=== PATIENT | female | born 1985 ===

== ENCOUNTER 2016-11-17 12:41 | Emergency (ER) | payer MEDICAID, OTHER | END 2016-11-17 16:35 | disposition home or self-care (01) | LOC: C.ER 12:41 ==

== ENCOUNTER 2017-11-30 11:38 | Emergency (ER) | payer MEDICAID ==
[2017-11-30 11:39] VITALS: BMI 31.8
[2017-11-30 12:40] VITALS: RESP 17
[2017-11-30 13:40] LABS: BASO % 0.4 % (0.0-2.0); EOS % 0.1 % (0.0-4.0); HEMOGLOBIN 12.4 g/dL (11.0-16.0); LYMPH % 16.5 % (20.0-40.0); MEAN CORPUSCULAR HEMOGLOBIN 28.4 pg (27.0-31.0); MEAN CORPUSCULAR HGB CONC 33.3 g/dL (33.0-37.0); MEAN PLATELET VOLUME 9.3 fL (7.2-11.7); MONO # 0.8 K/uL (0.0-0.8); MONO % 6.6 % (0.0-10.0); NEUT # 9.1 K/uL (1.8-7.0); NEUT % 76.4 % (50.0-75.0); RBC 4.35 Mil/uL (3.80-5.20); RED CELL DISTRIBUTION WIDTH 16.7 % (11.5-14.5); WHITE BLOOD COUNT 11.9 K/uL (4.8-10.8)
[2017-11-30 13:45] LABS: MEAN CELL VOLUME 85.2 fL (81.0-99.0)
[2017-11-30 13:49] LABS: URINE CLARITY Clear (Clear); URINE COLOR YELLOW (YELLOW)
[2017-11-30 13:50] LABS: URINE BILIRUBIN NEGATIVE (NEGATIVE); URINE BLOOD 1+ (NEGATIVE); URINE GLUCOSE (UA) NEGATIVE (Normal); URINE LEUKOCYTE ESTERASE NEGATIVE Leu/uL (Negative); URINE PROTEIN NEGATIVE (NEGATIVE); URINE UROBILINOGEN 0.2 mg/dL (0.2-1.0)
[2017-11-30 13:54] LABS: ALB/GLOB RATIO 1.4 (1.0-2.1); ALBUMIN 4.2 g/dL (3.5-5.0); ALT/SGPT 27 U/L (9-52); AST/SGOT 29 U/L (14-36); BLOOD UREA NITROGEN 9 mg/dL (7-17); CALCIUM 9.3 mg/dl (8.6-10.4); GFR NON-AFRICAN AMERICAN > 60
[2017-11-30 13:57] LABS: SQUAMOUS EPITHIAL 3 /hpf (0-5)
[2017-11-30] MEDS ORDERED: Dextrose 5%/0.45% NS 1,000 ML IV SCH (14:00)
[2017-11-30] MEDS ORDERED: Dextrose 5%/0.45% NS 1,000 ML IV ONE (14:28)
[2017-11-30 14:33] VITALS: BP 135/90; PULSE 83; TEMP 98.5; O2SAT 100
--- NOTE | 2017-11-30 14:51 | C.PDOC ---
History Of Present Illness 32 y/o female presents to the ED with complaints of vaginal bleeding, onset today. Patient states she is currently , but is not receiving care. LMP was 09/29/17. Today at work patient reports she passed a large, baseball-sized clot and had heavy vaginal bleeding after that. She otherwise denies any abdominal pain, nausea, vomiting, fevers, or other associated symptoms. Time Seen by Provider: 11/30/17 12:27 Chief Complaint (Nursing): Female Genitourinary History Per: Patient History/Exam Limitations: no limitations Onset/Duration Of Symptoms: Hrs Current Symptoms Are (Timing): Still Present Abnormal Vaginal Bleeding: Yes Last Menstral Period: 09/29/2017 Past Medical History Reviewed: Historical Data, Nursing Documentation, Vital Signs Vital Signs: Last Vital Signs Temp 98.5 F 11/30/17 14:31 Pulse 83 11/30/17 14:31 Resp 17 11/30/17 14:31 BP 135/90 11/30/17 14:31 Pulse Ox 100 12/02/17 18:51 - Medical History PMH: Asthma Surgical History: - [facility] Procedures MONITORING NOS (04/25/14) Family History: States: Unknown Family Hx - Social History Hx Tobacco Use: Yes Hx Alcohol Use: Yes Hx Substance Use: No - Immunization History Hx Tetanus Toxoid Vaccination: No Hx Influenza Vaccination: No Hx Pneumococcal Vaccination: No Review Of Systems Constitutional: Negative for: Fever, Chills Respiratory: Negative for: Shortness of Breath Gastrointestinal: Negative for: Nausea, Vomiting, Abdominal Pain Genitourinary: Positive for: Vaginal Bleeding. Negative for: Dysuria, Vaginal Discharge Neurological: Negative for: Headache, Dizziness Physical Exam - Physical Exam Appears: Non-toxic, No Acute Distress Skin: Warm, No Rash Head: Atraumatic, Normacephalic Eye(s): bilateral: PERRL, EOMI Oral Mucosa: Moist Neck: Normal ROM, Supple Chest: No Tenderness Cardiovascular: Rhythm Regular, No Murmur Respiratory: Normal Breath Sounds, No Rales, No Rhonchi, No Wheezing Gastrointestinal/Abdominal: Bowel Sounds, Soft, No Tenderness, No Guarding, No Rebound Back: No CVA Tenderness Extremity: Bilateral: Atraumatic, Normal Color And Temperature, Normal ROM Pulses: Left Dorsalis Pedis: Normal, Right Dorsalis Pedis: Normal Neurological/Psych: Oriented x3, Other (Alert, no focal deficits) Gait: Steady ED Course And Treatment - Laboratory Results Result Diagrams: 11/30/17 13:36 11/30/17 13:36 O2 Sat by Pulse Oximetry: 100 (RA) Pulse Ox Interpretation: Normal - CT Scan/US US Other Rad Studies (CT/US): Read By Radiologist, Radiology Report Reviewed CT/US Interpretation: Findings: Uterus: 14.0 x 5.9 x 7.9 centimeters. Heterogeneous echotexture. Anteverted. Cervix measures 4.4 centimeters. Intrauterine gestational sac measuring 3.2 centimeters corresponding to a gestational age of 8 weeks and 2 days. Yolk sac measures 3.8 millimeters. Tome-rump length measures 2.1 centimeters corresponding to a gestational age of 8 weeks 5 days. heart rate of 148 beats per minute. No free fluid in the pelvic cul-de-sac. Right ovary: 2.8 x 1.8 x 2.6 centimeters. Normal flow. Left ovary: 3.7 x 2 6 x 3.3 centimeters. Normal flow. Heterogeneous hypoechoic cyst measuring 2.8 x 2.1 x 2.7 centimeters. Impression: Intrauterine corresponding to a gestational age of 8 weeks 5 days by crown-rump length of 2.1 centimeters. heart rate of 148 beats per minute. 2.8 centimeter left ovarian cyst. Limited 1st trimester ultrasound for viability purposes only. Continued interval followup with serial ultrasound, serial HCG levels, and gynecological consultation would be helpful if clinically indicated. Medical Decision Making Medical Decision Making: Initial Impression: Vaginal bleeding during , threatened vs ectopic Plan: * Labs * UA * IV D50 in NS * OB US 1613 pt with decreased vaginal bleeding; no abdominal pian. d/c home with [facility] f /u Disposition Counseled Patient/Family Regarding: Studies Performed, Diagnosis, Need For Followup - Disposition [facility]errals: [facility]] [facility] [Outside] Disposition: HOME/ ROUTINE Disposition Time: 16:20 Condition: GOOD Additional Instructions: Drink increased fluids. Follow up with [facility] for further evaluation of . Return to ER for abdominal pain, heavy vaginal bleeding (more than one pad per hour) or any other concerns. pelvic rest- nothing in vagina, no sex. Instructions: Threatened Miscarriage (DC) Forms: General Discharge Instructions, Work/School/Gym Excuse, [facility] (Swedish) - Clinical Impression Clinical Impression: Threatened - PA / MEDICAL INTERN / Resident Statement MD/DO has reviewed & agrees with the documentation as recorded. - Scribe Statement The provider has reviewed the documentation as recorded by the Scribe (Florence Yin) All medical record entries made by the Scribe were at my direction and personally dictated by me. I have reviewed the chart and agree that the record accurately reflects my personal performance of the history, physical exam, medical decision making, and the department course for this patient. I have also personally directed, reviewed, and agree with the discharge instructions and disposition.
--- NOTE | 2017-11-30 15:16 | US ---
Pelvic ultrasound History: . Vaginal bleeding. Comparison: None available. Technique: Real-time sonography was performed through the pelvis. Findings: Uterus: 14.0 x 5.9 x 7.9 centimeters. Heterogeneous echotexture. Anteverted. Cervix measures 4.4 centimeters. Intrauterine gestational sac measuring 3.2 centimeters corresponding to a gestational age of 8 weeks and 2 days. Yolk sac measures 3.8 millimeters. [place]lin-rump length measures 2.1 centimeters corresponding to a gestational age of 8 weeks 5 days. heart rate of 148 beats per minute. No free fluid in the pelvic cul-de-sac. Right ovary: 2.8 x 1.8 x 2.6 centimeters. Normal flow. Left ovary: 3.7 x 2 6 x 3.3 centimeters. Normal flow. Heterogeneous hypoechoic cyst measuring 2.8 x 2.1 x 2.7 centimeters. Impression: Intrauterine corresponding to a gestational age of 8 weeks 5 days by crown-rump length of 2.1 centimeters. heart rate of 148 beats per minute. 2.8 centimeter left ovarian cyst. Limited 1st trimester ultrasound for viability purposes only. Continued interval followup with serial ultrasound, serial HCG levels, and gynecological consultation would be helpful if clinically indicated.
== END 2017-11-30 16:35 | disposition home or self-care (01) ==
LOC: C.ER 11:38
DX: O20.0 Threatened abortion (principal); Z3A.08 8 weeks gestation of pregnancy
CPT/HCPCS: 76801; 80053; 81001; 84702; 85025; 86850; 86900; 96360; 96361; 99284; J7042

== ENCOUNTER 2018-01-11 09:46 | Emergency (ER) | payer MEDICAID ==
[2018-01-11 09:46] VITALS: BMI 31.8
[2018-01-11 09:57] VITALS: TEMP 98; O2SAT 100
--- NOTE | 2018-01-11 10:37 | C.PDOC ---
History Of Present Illness 32 y/o female, , LMP 09/29/17, no hx of ectopic, presents to the ER for evaluation of diffuse lower abdominal pain which began in the morning today. Pt admits, no care UTD. Otherwise, patient denies recent illness, fever, CP, SOB, dyspnea, nausea, vomiting, vaginal bleeding, or vaginal discharge, back pain, UTI sx. Ambulate to Ed for evaluation, not in any apparent distress. Time Seen by Provider: 01/11/18 09:49 Chief Complaint (Nursing): Abdominal Pain History Per: Patient History/Exam Limitations: no limitations Onset/Duration Of Symptoms: Hrs Current Symptoms Are (Timing): Still Present Severity: Moderate Past Medical History Reviewed: Historical Data, Nursing Documentation, Vital Signs Vital Signs: Last Vital Signs Temp 98 F 01/11/18 09:50 Pulse 107 H 01/11/18 09:50 Resp 18 01/11/18 09:50 BP 113/80 01/11/18 09:50 Pulse Ox 100 01/11/18 09:50 - Medical History PMH: Asthma Surgical History: - [facility] Procedures MONITORING NOS (04/25/14) Family History: States: No Known Family Hx - Social History Hx Tobacco Use: Yes Hx Alcohol Use: No Hx Substance Use: No - Immunization History Hx Tetanus Toxoid Vaccination: No Hx Influenza Vaccination: No Hx Pneumococcal Vaccination: No Review Of Systems Except As Marked, All Systems Reviewed And Found Negative. Constitutional: Negative for: Fever, Chills Gastrointestinal: Positive for: Abdominal Pain (lower abdominal pain). Negative for: Nausea, Vomiting Genitourinary: Negative for: Dysuria, Hematuria, Vaginal Discharge, Vaginal Bleeding Physical Exam - Physical Exam Appears: Well, Non-toxic, No Acute Distress Skin: Normal Color, Warm, Dry Head: Normacephalic Eye(s): bilateral: PERRL Nose: No Flaring Oral Mucosa: Moist, No Drooling Throat: No Erythema, No Drooling Neck: Trachea Midline, Supple Chest: Symmetrical Cardiovascular: Rhythm Regular, No Murmur, No JVD Respiratory: No Decreased Breath Sounds, No Accessory Muscle Use, No Rales, No Rhonchi, No Wheezing Gastrointestinal/Abdominal: Soft, No Tenderness, No Distention, No Guarding, No Rebound Back: No CVA Tenderness Extremity: Normal ROM, No Pedal Edema, No Swelling Neurological/Psych: Oriented x3, Normal Speech ED Course And Treatment - Laboratory Results Result Diagrams: 01/11/18 10:47 Lab Interpretation: Normal O2 Sat by Pulse Oximetry: 100 (RA) Pulse Ox Interpretation: Normal - CT Scan/US OB US Other Rad Studies (CT/US): Read By Radiologist CT/US Interpretation: Impression: Single living fetus with a composite sonographic age of 15 weeks 2 days. Estimated heart rate 144.4 beats per min. 1.5 x 1.3 x 2 cm suspected mid posterior uterine fibroid; attention on follow-up. Advise an anomaly screen at 16-18 weeks gestational age. . Progress Note: Labs, UA, HCG- Qualitative and US- Transvaginal ordered. Pt remained tsable during the ED evaluation. On re-evaluation, pt is afebrile, hemodynamicaly stable. Non-toxic. ENT: No acute changes,. neck: Supple, (-) JVD, (-) carotid bruits B/L. Abd: benign, (-) guarding, (-) rebound, (-) localized tenderness. back: (-) CVA tenderness. neurologicaly intact. Blood work review and appears without acute abnoramlities. BLood type O positive. OB US results review, single living, 15w2d, no acute abnormal findings. Beta quant c/w US finidngs. Pt has clinical finidngs c/w theratened miscarriage. Pt advised and ref. to F/u with OB in 1-2 days for re-eval. return to ED if any worsening or new changes. Disposition Counseled Patient/Family Regarding: Studies Performed, Diagnosis, Need For Followup, Rx Given - Disposition [facility] Disposition: HOME/ ROUTINE Disposition Time: 12:40 Condition: STABLE Additional Instructions: vitamins Follow up with OB in 2-3 days for re-evaluation. return to ED if any worsening or new changes. 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 - Scribe Statement The provider has reviewed the documentation as recorded by the Scribe Summen Shane Provider Attestation All medical record entries made by the Akash were at my direction and personally dictated by me. I have reviewed the chart and agree that the record accurately reflects my personal performance of the history, physical exam, medical decision making, and the department course for this patient. I have also personally directed, reviewed, and agree with the discharge instructions and disposition.
[2018-01-11 10:55] LABS: BASO # 0.1 K/uL (0.0-0.2); BASO % 0.6 % (0.0-2.0); EOS # 0.1 K/uL (0.0-0.7); EOS % 0.8 % (0.0-4.0); HEMOGLOBIN 12.1 g/dL (11.0-16.0); LYMPH # 1.8 K/uL (1.0-4.3); LYMPH % 18.3 % (20.0-40.0); MEAN CELL VOLUME 86.4 fL (81.0-99.0); MEAN CORPUSCULAR HEMOGLOBIN 29.3 pg (27.0-31.0); MEAN CORPUSCULAR HGB CONC 33.9 g/dL (33.0-37.0); MEAN PLATELET VOLUME 9.2 fL (7.2-11.7); MONO # 0.6 K/uL (0.0-0.8); MONO % 6.1 % (0.0-10.0); NEUT # 7.2 K/uL (1.8-7.0); NEUT % 74.2 % (50.0-75.0); NRBC % 0.1 % (0.0-2.0); RBC 4.13 Mil/uL (3.80-5.20); RED CELL DISTRIBUTION WIDTH 16.3 % (11.5-14.5); WHITE BLOOD COUNT 9.7 K/uL (4.8-10.8)
[2018-01-11 10:59] LABS: HCG,QUALITATIVE URINE POSITIVE (NEGATIVE)
[2018-01-11 11:04] LABS: SQUAMOUS EPITHIAL 1 /hpf (0-5); URINE BACTERIA RARE (<OCC); URINE BILIRUBIN NEGATIVE (NEGATIVE); URINE BLOOD NEGATIVE (NEGATIVE); URINE CLARITY Clear (Clear); URINE COLOR Yellow (YELLOW); URINE GLUCOSE (UA) NORMAL (Normal); URINE LEUKOCYTE ESTERASE NEG Leu/uL (Negative); URINE PROTEIN NEGATIVE (NEGATIVE); URINE UROBILINOGEN NORMAL mg/dL (0.2-1.0)
--- NOTE | 2018-01-11 13:02 | US ---
Indication: Lower abdominal pain Comparison: 1st trimester ultrasound performed 12/01/19 Technique: Real-time ultrasound was performed through the pelvis. Findings: There is a single living fetus in variable presentation. Amniotic fluid volume is within normal limits. Anterior fundal placenta. The placenta does not appear previa. The right ovary is not visualized. 1.8 cm left ovarian follicle/cyst. 1.5 x 1.3 x 2 cm suspected mid posterior uterine fibroid. Cervix length measures approximately 3.2 cm. Measurements and calculations: Fetus has a composite sonographic age of 15 weeks 2 days. This calculation is based on the biparietal diameter, head circumference, abdominal circumference, and femur length. Estimated heart rate 144.4 beats per min. Estimated weight 114.6 g. Impression: Single living fetus with a composite sonographic age of 15 weeks 2 days. Estimated heart rate 144.4 beats per min. 1.5 x 1.3 x 2 cm suspected mid posterior uterine fibroid; attention on follow-up. Advise an anomaly screen at 16-18 weeks gestational age.
[2018-01-11 13:26] VITALS: BP 112/78; PULSE 96; RESP 16
== END 2018-01-11 13:25 | disposition home or self-care (01) ==
LOC: C.ER 09:46
DX: O20.0 Threatened abortion (principal)